=== PATIENT | male | born 1980 | race Caucasian/White ===

== ENCOUNTER 2017-05-21 12:18 | Outpatient (CLI) | payer BC ==
--- NOTE | 2017-05-21 13:29 | RAD ---
CHEST PA AND LATERAL: HISTORY: A 37-year-old male with a history of cough. FINDINGS: Heart size is normal. The lungs are clear. IMPRESSION: No acute intrathoracic disease. No evidence of pneumonia. POS: [facility]
== END 2017-05-21 12:19 | disposition home or self-care (01) ==
LOC: SCSRAD 12:18
PROVIDERS: ATTEND Family Medicine
DX: R05 Cough (principal)
CPT/HCPCS: 71046